=== PATIENT | male | born 1965 | race Caucasian/White ===

== ENCOUNTER 2017-11-14 06:47 | Day surgery (SDC) | payer BC ==
[~2017-11-14 06:47] MED LIST: Lactated Ringers 1,000 ML IV SCH
[2017-11-14] MEDS ORDERED: Propofol 200 MG/20 ML SDV IV ONE (08:00)
--- NOTE | 2017-11-14 08:23 | PCM.OPNOTE ---
- General Post-Op/Procedure Note Date of Surgery/Procedure: 11/14/17 Operative Procedure(s): c scope with bx hot loop snare Findings: descending colon polyp sigmoid diverticulosis Pre Op Diagnosis: screening Post-Op Diagnosis: descending colon polyp. sigmoid diverticulosis [place]est[place] [facility] [place]geon: Deandre Gonzalez Anesthesia Provider: Naren Contreras Pathology: descending colon polyp Complications: None Condition: Good Free Text/Narrative:: see dictation
--- NOTE | 2017-11-14 11:10 | OR ---
DATE OF OPERATION: 11/14/2017 SURGEON: Deandre Gonzalez MD PROCEDURE PERFORMED: Colonoscopy with hot loop snare biopsy. PREOPERATIVE DIAGNOSIS: Need for colon cancer screening. POSTOPERATIVE DIAGNOSIS: Sigmoid diverticulosis and descending colon polyp. INDICATIONS FOR PROCEDURE: This is a 52-year-old white male who presents for his initial colon cancer screening. DESCRIPTION OF PROCEDURE: After an excellent IV sedation was administered, digital rectal exam was performed. No marked abnormality was noted. The flexible colonoscope was inserted and advanced to the cecum without difficulty. The prep was excellent. The following findings were noted. Ascending colon, unremarkable. Transverse colon, unremarkable. Descending colon, mid descending colon a pedunculated polyp, biopsied with a hot loop snare and sent for permanent. Photo was taken. Sigmoid, mild diverticulosis. Rectum and anus, unremarkable. Colon was deflated as the scope was removed. Patient tolerated procedure well, taken to recovery in good condition. /[id number] /PALMIRAL
== END 2017-11-14 09:17 | disposition home or self-care (01) ==
LOC: FB.SDS 06:47
PROVIDERS: ATTEND Surgery
DX: Z12.11 Encounter for screening for malignant neoplasm of colon (principal); K63.5 Polyp of colon; K57.30 Diverticulosis of large intestine without perforation or abscess without bleeding; I10 Essential (primary) hypertension; F32.9 Major depressive disorder, single episode, unspecified; Z79.899 Other long term (current) drug therapy; Z88.0 Allergy status to penicillin
CPT/HCPCS: 45385; 88305; J2704; J7120